=== PATIENT | female | born 1990 | race Caucasian/White ===

== ENCOUNTER → 2016-05-04 | Emergency (ER) | payer OTHER ==
[~2016-05-04] MED LIST: METRONIDAZOLE 500 MG PREMIXED 100 ML IVPB ONE; ONDANSETRON 4 MG/2 ML VIAL ONE; morphine CARPU-JECT 4 MG/1 ML DISP.SYRIN ONE
[2016-05-04 21:05] VITALS: BP 112/51; PULSE 91; TEMP 98.7; BMI 32.2
--- NOTE | 2016-05-04 21:35 | PDOC ---
History of Present Illness - General Chief Complaint: Vomiting/Diarrhea Stated Complaint: VOMITING/DIARRHEA Past History - Past Medical History Allergies/Adverse Reactions: Allergies Allergy/AdvReac Type Severity Reaction Status Date / Time fluoxetine HCl [From Prozac] Allergy Verified 05/04/16 21:01 haloperidol [From Haldol] Allergy Verified 05/04/16 21:01 haloperidol lactate Allergy Verified 05/04/16 21:01 [From Haldol] risperidone [From Risperdal] AdvReac Verified 05/04/16 21:01 Home Medications: Ambulatory Orders Clonazepam 1 mg PO BID 05/04/16 Duloxetine HCl [Cymbalta -] 90 mg PO DAILY 05/04/16 Fluvoxamine Maleate [Luvox -] 0 mg PO DAILY 05/04/16 Quetiapine Fumarate [Seroquel] 600 mg PO HS 05/04/16 GI Disorders: Yes (irritable bowel syndrome) Psychiatric Problems: Yes (MDD, BIPOLAR, ANXIETY) - Psycho/Social/Smoking Cessation Hx Suicidal Ideation: No Smoking Status: Yes Smoking History: Current every day smoker Number of Cigarettes Smoked Daily: 2 Information on smoking cessation initiated: Yes 'Breaking Loose' booklet given: 05/04/16 Hx Alcohol Use: No Drug/Substance Use Hx: No *Physical Exam - Vital Signs Last Vital Signs Temp Pulse Resp BP Pulse Ox 98.7 F 91 H 18 112/51 97 05/04/16 21:03 05/04/16 21:03 05/04/16 21:03 05/04/16 21:03 05/04/16 21:03
== END | disposition left against medical advice (07) ==
LOC: JER 20:57
DX: Z53.21 Procedure and treatment not carried out due to patient leaving prior to being seen by health care provider (principal)
CPT/HCPCS: 99281-25

== ENCOUNTER 2016-06-20 23:25 | Emergency (ER) | payer OTHER ==
[2016-06-20 23:38] VITALS: PULSE 104; TEMP 98; BMI 27.4
[2016-06-21] MEDS ORDERED: TETANUS AND DIPHTHERIA TOXOID 0.5 ML DISP.SYRIN IM ONE (00:03)
[2016-06-21] MEDS ORDERED: LIDOCAINE HCL 1%, 10 MG/ML (50 mL VIAL) IO ONE (00:08)
[2016-06-21] MEDS ORDERED: BACITRACIN 30 GM TUBE TOPICAL OINTMENT TP ONE (00:08)
--- NOTE | 2016-06-21 00:13 | PDOC ---
History of Present Illness - General Chief Complaint: Laceration Stated Complaint: RT HAND LACERATION Time Seen by Provider: 06/20/16 23:53 History Source: Patient Exam Limitations: No Limitations - History of Present Illness Initial Comments: 06/21/16 00:10 25yo Female patient presents to ED c/o right hand laceration sustained while cooking earlier today approx.. 3pm. Patient states she thought it was a superficial wound that why she did not come in earlier. Tetanus: Not up to date. Denies any other complaints at this time. Severity: Yes: mild Location: reports: extremities Respiratory Risk Factors: denies: no cause identified, exposure to illness, exposure to allergen, foods, insect bite, insect sting, medications, pollen, soaps, other Modifying Factors: worse with: antihistamine, calamine lotion, prednisone, scratching, topical steriods, other Associated Symptoms: denies: denies symptoms, blisters, change in skin texture, edema, fever, flushing, headache, hives, jaundice, malaise, nasal congestion, numbness, pallor, paresthesia, petechiae, rash, sore throat, swelling/mass/lumps , tingling, other Past History - Travel Traveled outside of the country in the last 30 days: No Close contact w/someone who was outside of country & ill: No - Past Medical History Allergies/Adverse Reactions: Allergies Allergy/AdvReac Type Severity Reaction Status Date / Time fluoxetine HCl [From Prozac] Allergy Verified 06/20/16 23:36 haloperidol [From Haldol] Allergy Verified 06/20/16 23:36 haloperidol lactate Allergy Verified 06/20/16 23:36 [From Haldol] risperidone [From Risperdal] AdvReac Verified 06/20/16 23:36 Home Medications: Ambulatory Orders Fluvoxamine Maleate [Luvox -] 100 mg PO HS 05/04/16 Clonazepam 1 mg PO BID #60 tab.rapdis MDD 2 05/07/16 Duloxetine HCl [Cymbalta -] 90 mg PO DAILY #90 capsule. 05/07/16 Quetiapine Fumarate [Seroquel] 600 mg PO HS #60 tablet 05/07/16 Cephalexin [Keflex] 500 mg PO DAILY #7 capsule 06/21/16 GI Disorders: Yes (irritable bowel syndrome) Psychiatric Problems: Yes - Immunization History Immunization Up to Date: No - Psycho/Social/Smoking Cessation Hx Suicidal Ideation: No Smoking Status: Yes Smoking History: Current every day smoker Number of Cigarettes Smoked Daily: 2 Information on smoking cessation initiated: No 'Breaking Loose' booklet given: 05/04/16 Hx Alcohol Use: No Drug/Substance Use Hx: No Review of Systems - Review of Systems Able to Perform ROS?: Yes Is the patient limited Turkish proficient: No Constitutional: No: Chills, Fever Integumentary: Yes: Erythema, Other (Laceration) All Other Systems: Reviewed and Negative *Physical Exam - Vital Signs Last Vital Signs Temp Pulse Resp BP Pulse Ox 98 F 104 H 16 134/110 98 06/20/16 23:37 06/20/16 23:37 06/20/16 23:37 06/20/16 23:37 06/20/16 23:37 - Physical Exam General Appearance: Yes: Nourished, Appropriately Dressed. No: Apparent Distress, Mild Distress, Moderate Distress, Severe Distress Respiratory/Chest: positive: Lungs Clear, Normal Breath Sounds. negative: Respiratory Distress, Accessory Muscle Use, Labored Respiration, Rapid RR Cardiovascular: positive: Regular Rhythm, Regular Rate. negative: Edema, JVD, Murmur Musculoskeletal: positive: Normal Inspection. negative: CVA Tenderness Extremity: positive: Normal Capillary Refill, Normal Inspection, Normal Range of Motion. negative: Pedal Edema, Swelling Integumentary: positive: Normal Color, Dry, Warm, Swelling (Mild), Other ( Linear laceration to roberts aspect of right hand.) Procedures - Laceration/Wound Repair Right Hand Wound Length: to 2.5 cm Wound Explored: clean Wound's Depth, Shape: superficial, linear Irrigated w/ Saline: Yes Betadine Prep: Yes Anesthesia: 1% Lidocaine Amount of Anesthetic (ccs): 3 Wound Debrided: minimal Wound Repaired With: Sutures Suture Size/Type: 4:0, nylon Number of Sutures: 3 Layer Closure: No Sterile Dressing Applied: No Splint Applied: No Sling Applied: No Progress: 06/21/16 00:39 Patient tolerated procedure well. ED Treatment Course - Medications Given in the ED: ED Medications Discontinued Medications Generic Name Dose Route Start Last Admin Trade Name Freq PRN Reason Stop Dose Admin Tetanus/Diphtheria Toxoids Adsorbed 0.5 ml 06/21/16 00:03 06/21/16 00:03 Decavac - IM 06/21/16 00:04 0.5 ml NOW ONE Administration *DC/Admit/Observation/Transfer Diagnosis at time of Disposition: Laceration - Discharge Dispostion Disposition: HOME Condition at time of disposition: Stable Admit: No - Prescriptions Prescriptions: Cephalexin [Keflex] 500 mg PO DAILY #7 capsule - Patient Instructions Printed Discharge Instructions: DI for Laceration Repair, DI for Suture Removal Additional Instructions: RETURN IN 2 WEEKS FOR SUTURE REMOVAL. CLEAN AREA DAILY AND APPLY TRIPLE ANTIBIOTIC OR NEOSPORIN. RETURN IF SYMPTOMS WORSEN ON AND CONCERNS FOR FURTHER EVALUATION. Print Language: MOHAWK
[2016-06-21] MEDS ORDERED: CEPHALEXIN MONOHYDRATE 250 MG CAPSULE (FP) ONE (00:39)
[2016-06-21] MEDS ORDERED: CEPHALEXIN MONOHYDRATE 500 MG CAPSULE (UD) PO ONE (00:43)
[2016-06-21 00:48] VITALS: BP 128/80
== END 2016-06-21 00:48 | disposition home or self-care (01) ==
LOC: JER 23:25
PROC: 3E0234Z Introduction of Serum, Toxoid and Vaccine into Muscle, Percutaneous Approach (ICD-10-PCS; principal; 2016-06-20)
PROC: 0HQFXZZ Repair Right Hand Skin, External Approach (ICD-10-PCS; 2016-06-20)
DX: S61.411A Laceration without foreign body of right hand, initial encounter (principal); W26.0XXA Contact with knife, initial encounter; Y93.G3 Activity, cooking and baking; Y92.030 Kitchen in apartment as the place of occurrence of the external cause; Y99.8 Other external cause status
CPT/HCPCS: 12001-25; 90471; 90715; 99282-25

== ENCOUNTER 2016-10-06 10:31 | Emergency (ER) | payer OTHER ==
--- NOTE | 2016-10-06 10:53 | PDOC ---
History of Present Illness - General History Source: Patient, Old Records Exam Limitations: No Limitations - History of Present Illness Initial Comments: 10/06/16 12:26 The patient is a 26-year-old woman with a significant past medical history of major depressive disorder, bipolar disorder, anxiety, irritable bowel syndrome and hemorrhoids who presents to the emergency department for vaginal bleeding. Patient states that she believes she is . She reports taking two home test for which both were negative. Patient has similar complaints in April for which she was seen in this facility and a negative was confirmed and she started an oral contraceptive regime. Allergies: Fluoxetine HCL. Haloperidol. Haloperidol Lactate. Risperidone Past Surgical History: None reported. Social History: Current everyday cigarette smoker (approximately 2 cigarettes/ day). No EtOH and recreational drug use. Primary Care Physician: Dr. Jen Pratt <Tika Hernandez - Last Filed: 10/06/16 12:48> <Mary Alston - Last Filed: 10/06/16 13:34> - General Chief Complaint: Psychiatric Stated Complaint: Vaginal Bleeding Time Seen by Provider: 10/06/16 10:41 Past History <Tika Hernandez - Last Filed: 10/06/16 12:48> - Past Medical History GI Disorders: Yes (irritable bowel syndrome) Psychiatric Problems: Yes - Immunization History Immunization Up to Date: No - Psycho/Social/Smoking Cessation Hx Suicidal Ideation: No Smoking Status: Yes Smoking History: Current every day smoker Number of Cigarettes Smoked Daily: 2 'Breaking Loose' booklet given: 05/04/16 Hx Alcohol Use: No Drug/Substance Use Hx: No <Mary Alston - Last Filed: 10/06/16 13:34> - Past Medical History Allergies/Adverse Reactions: Allergies Allergy/AdvReac Type Severity Reaction Status Date / Time fluoxetine HCl [From Prozac] Allergy Verified 06/20/16 23:36 haloperidol [From Haldol] Allergy Verified 06/20/16 23:36 haloperidol lactate Allergy Verified 06/20/16 23:36 [From Haldol] risperidone [From Risperdal] AdvReac Verified 06/20/16 23:36 Home Medications: Ambulatory Orders Fluvoxamine Maleate [Luvox -] 100 mg PO HS 05/04/16 Clonazepam 1 mg PO BID #60 tab.rapdis MDD 2 05/07/16 Duloxetine HCl [Cymbalta -] 90 mg PO DAILY #90 capsule. 05/07/16 Quetiapine Fumarate [Seroquel] 600 mg PO HS #60 tablet 05/07/16 Cephalexin [Keflex] 500 mg PO DAILY #7 capsule 06/21/16 Review of Systems - Review of Systems Able to Perform ROS?: Yes Comments:: GENERAL/CONSTITUTIONAL: No fever or chills. No weakness. HEAD, EYES, EARS, NOSE AND THROAT: No change in vision. No ear pain or discharge. No sore throat. CARDIOVASCULAR: No chest pain or shortness of breath. RESPIRATORY: No cough, wheezing, or hemoptysis. GASTROINTESTINAL: +Nausea, vomiting. No diarrhea or constipation. GENITOURINARY: No dysuria, frequency, or change in urination. MUSCULOSKELETAL: No joint or muscle swelling or pain. No neck or back pain. SKIN: No rash NEUROLOGIC: No headache, vertigo, loss of consciousness, or change in strength/ sensation. ENDOCRINE: No increased thirst. No abnormal weight change. HEMATOLOGIC/LYMPHATIC: No anemia, easy bleeding, or history of blood clots. ALLERGIC/IMMUNOLOGIC: No hives or skin allergy. <Mary Alston - Last Filed: 10/06/16 13:34> *Physical Exam - Vital Signs Last Vital Signs Temp Pulse Resp BP Pulse Ox 98.1 F 74 20 108/73 100 10/06/16 10:52 10/06/16 10:52 10/06/16 10:52 10/06/16 10:52 10/06/16 10:52 <Tika Hernandez - Last Filed: 10/06/16 12:48> - Physical Exam Comments: GENERAL: Awake, alert, and fully oriented, in no acute distress HEAD: No signs of trauma EYES: PERRLA, EOMI, sclera anicteric, conjunctiva clear ENT: Auricles normal inspection, hearing grossly normal, nares patent, oropharynx clear without exudates. Moist mucosa NECK: Normal ROM, supple, no lymphadenopathy, JVD, or masses LUNGS: Breath sounds equal, clear to auscultation bilaterally. No wheezes, and no crackles HEART: Regular rate and rhythm, normal S1 and S2, no murmurs, rubs or gallops ABDOMEN: Soft, nontender, normoactive bowel sounds. No guarding, no rebound. No masses EXTREMITIES: Normal range of motion, no edema. No clubbing or cyanosis. No cords, erythema, or tenderness NEUROLOGICAL: Cranial nerves II through XII grossly intact. Normal speech, normal gait SKIN: Warm, Dry, normal turgor, no rashes or lesions noted. PSYCHIATRIC: Mildly agitated, refusing to answer some questions. <Mary Alston - Last Filed: 10/06/16 13:34> ED Treatment Course - LABORATORY CBC & Chemistry Diagram: 10/06/16 12:00 10/06/16 12:00 - ADDITIONAL ORDERS Additional order review: Laboratory Results 10/06/16 10/06/16 12:00 12:00 Urine Color Ltyellow Urine Appearance Clear Urine pH 6.0 Urine Protein Negative Urine Glucose (UA) Negative Urine Ketones Negative Urine Blood 3+ H Urine Nitrite Negative Urine Bilirubin Negative Urine Urobilinogen Negative Ur Leukocyte Esterase Negative Opiates Screen Negative Methadone Screen Negative Barbiturate Screen Negative Ur Amphetamines Screen Negative MDMA (Ecstasy) Screen Negative Benzodiazepines Screen Negative Cocaine Screen Negative - Medications Given in the ED: ED Medications Discontinued Medications Generic Name Dose Route Start Last Admin Trade Name Freq PRN Reason Stop Dose Admin Sodium Chloride 1,000 mls @ 1,000 mls/hr 10/06/16 10:54 10/06/16 11:47 Normal Saline - IV 10/06/16 11:53 1,000 mls/hr ASDIR STA Administration <Tika Hernandez - Last Filed: 10/06/16 12:48> - LABORATORY CBC & Chemistry Diagram: 10/06/16 12:00 10/06/16 12:00 <Mary Alston - Last Filed: 10/06/16 13:34> Medical Decision Making - Medical Decision Making Pt with complaints of vaginal bleeding intermittently since March, for which she has followed up as an outpatient. She initially insisted she was , stating she was lactating. However, she has been following up with preboarder as an outpatient, was placed on OCPs back in March for ?DUB. Serum B-HCG was sent, negative. She c/o N/V, initially refusing any history with a hostile affect, stating "read the chart, it's the same thing". I started IV fluids and sent labs , HCG was negative, and at that point, patient stated she felt better, requesting discharge home. Given the prior notes in chart as well as known marijuana use, suspect cyclic vomiting. <Mary Alston - Last Filed: 10/06/16 13:34> *DC/Admit/Observation/Transfer - Attestations Scribe Attestion: 10/06/16 12:37 Documentation prepared by Tika Hernandez, acting as medical cash poster for Mary Alston MD. <Tika Hernandez - Last Filed: 10/06/16 12:48> - Discharge Dispostion Admit: No <Mary Alston - Last Filed: 10/06/16 13:34> Diagnosis at time of Disposition: Nausea and vomiting Qualifiers: Vomiting type: unspecified Vomiting Intractability: non-intractable Qualified Code(s): R11.2 - Nausea with vomiting, unspecified - Discharge Dispostion Disposition: HOME Condition at time of disposition: Stable - Referrals Referrals: eJn Handley MD [Primary Care Provider] - - Patient Instructions Printed Discharge Instructions: DI for Vomiting -- Adult
[2016-10-06] MEDS ORDERED: SODIUM CHLORIDE 1,000 ML IV STA (10:54)
[2016-10-06 11:00] VITALS: BP 108/73; PULSE 74; TEMP 98.1
[2016-10-06 12:19] LABS: URINE APPEARANCE CLEAR; URINE BILIRUBIN NEGATIVE (NEGATIVE); URINE COLOR LTYELLOW; URINE GLUCOSE (UA) NEGATIVE (NEGATIVE); URINE KETONE NEGATIVE (NEGATIVE); URINE LEUK ESTERASE NEGATIVE (NEGATIVE); URINE NITRITE NEGATIVE (NEGATIVE); URINE PROTEIN NEGATIVE (NEGATIVE); URINE UROBILINOGEN NEGATIVE E.U./dl (0.2-1.0)
[2016-10-06 12:20] LABS: BASOPHIL 0.8 % (0-2.0); EOSINOPHIL 2.2 % (0-4.5); MCH 31.1 pg (25.7-33.7); MCHC 33.6 g/dl (32.0-36.0); MEAN CELL VOLUME 92.6 fl (80-96); MEAN PLT VOLUME 8.8 fl (7.5-11.1); NEUTROPHILS 75.2 % (42.8-82.8); PLATELET COUNT 275 K/MM3 (134-434); RDW 14.5 % (11.6-15.6); WHITE BLOOD COUNT 16.6 K/mm3 (4.0-10.0)
[2016-10-06 12:23] LABS: URINE BLOOD 3+ (NEGATIVE)
[2016-10-06 12:25] LABS: URINE RBC 363 /hpf (0-3)
[2016-10-06 12:37] LABS: URINE MARIJUANA THC POSITIVE ng/ml (CUTOFF=50)
[2016-10-06 12:40] LABS: ALBUMIN 3.5 g/dl (3.4-5.0); ANION GAP 5 (8-16); BILIRUBIN,TOTAL 0.2 mg/dL (0.2-1.0); CALCIUM 9.1 mg/dL (8.5-10.1); CO2 28 mmol/L (21-32); CREATININE 0.6 mg/dL (0.55-1.02); GLUCOSE,RANDOM 87 mg/dL (74-106); SGOT/AST 12 U/L (15-37); SGPT/ALT 14 U/L (12-78); TOT PROT 7.2 g/dl (6.4-8.2)
[2016-10-06 12:42] LABS: ALK PHOS 66 U/L (45-117)
== END 2016-10-06 13:05 | disposition home or self-care (01) ==
LOC: JER 10:31
PROC: 3E0337Z Introduction of Electrolytic and Water Balance Substance into Peripheral Vein, Percutaneous Approach (ICD-10-PCS; principal; 2016-10-06)
DX: R11.2 Nausea with vomiting, unspecified (principal); F32.9 Major depressive disorder, single episode, unspecified; F31.89 Other bipolar disorder
CPT/HCPCS: 36415; 80053; 80307; 81003; 81015; 84702; 85025; 96360; 99283-25

== ENCOUNTER 2016-11-26 10:24 | Emergency (ER) | payer OTHER ==
[2016-11-26 10:33] VITALS: BP 128/75; PULSE 84; TEMP 98.5; BMI 27.4
[2016-11-26 12:32] LABS: BASOPHIL 0.5 % (0-2.0); EOSINOPHIL 0.1 % (0-4.5); MCH 31.1 pg (25.7-33.7); MCHC 33.1 g/dl (32.0-36.0); MEAN CELL VOLUME 93.8 fl (80-96); MEAN PLT VOLUME 9.8 fl (7.5-11.1); NEUTROPHILS 84.7 % (42.8-82.8); PLATELET COUNT 211 K/MM3 (134-434); RDW 14.1 % (11.6-15.6); WHITE BLOOD COUNT 14.4 K/mm3 (4.0-10.0)
[2016-11-26 12:43] LABS: URINE APPEARANCE SLCLOUDY; URINE BILIRUBIN NEGATIVE (NEGATIVE); URINE BLOOD NEGATIVE (NEGATIVE); URINE COLOR AMBER; URINE GLUCOSE (UA) NEGATIVE (NEGATIVE); URINE KETONE 2+ (NEGATIVE); URINE LEUK ESTERASE TRACE (NEGATIVE); URINE NITRITE NEGATIVE (NEGATIVE); URINE UROBILINOGEN NEGATIVE mg/dL (0.2-1.0)
[2016-11-26 12:44] LABS: URINE PROTEIN 1+ (NEGATIVE)
[2016-11-26 12:46] LABS: URINE BACTERIA RARE /hpf (NONE SEEN); URINE MUCUS MANY; URINE RBC 5 /hpf (0-3); URINE WBC 4 /hpf (3-5)
[2016-11-26] MEDS ORDERED: ONDANSETRON 4 MG/2 ML VIAL IVPB ONE (12:49)
[2016-11-26] MEDS ORDERED: MAG HYDROX/AL HYDROX/SIMETH 355 ML ORAL.SUSP PO ONE (12:49)
[2016-11-26] MEDS ORDERED: FAMOTIDINE 20 MG/50 ML IVPB 20 MG in PREMIX 50 IVPB ONE (12:49)
[2016-11-26] MEDS ORDERED: ONDANSETRON 4 MG/2 ML VIAL ONE (12:52)
[2016-11-26] MEDS ORDERED: MAG HYDROX/AL HYDROX/SIMETH 30 ML UNIT-DOSE CUP ONE (12:52)
[2016-11-26] MEDS ORDERED: FAMOTIDINE 20 MG/50 ML IVPB 50 ML IVPB ONE (12:53)
--- NOTE | 2016-11-26 12:54 | PDOC ---
History of Present Illness - General History Source: Patient Exam Limitations: No Limitations - History of Present Illness Initial Comments: 11/26/16 15:49 The patient is a 26 year old female, with a significant past medical history of major depressive disorder, bipolar disorder, anxiety, IBS and hemorrhoids who presents to the emergency department with lower abdominal pain, nausea, and vomiting for about 2 weeks. The patient reports being unable to tolerate any solids/liquids since the onset of her symptoms. She reports having intermittent abdominal pain every morning. She often notes having multiple episodes of vomiting every morning. She reports vomiting clear/. orange/yellow liquid with black spots. The patient reports having ongoing problems with an ovarian cyst since Apr 2016. She reports since having been diagnosed with an ovarian cysts having intermittent episodes of vaginal bleeding. She denies recent fevers, chills, headache or dizziness. She denies any recent travel or sick contacts. She denies recent dysuria, frequency, urgency or hematuria. She denies recent chest pain or shortness of breath. Pt states her periods are irregular. Allergies: See Nursing Notes Past surgical history: None reported. Social history: Current Everyday cigarette smoker. Denies EtOH use and recreational drug use. Primary Care Physician: Dr.Sharon Pozo <Km Hahn - Last Filed: 11/26/16 15:49> <Rigoberto Wang - Last Filed: 11/26/16 17:35> - General Chief Complaint: Pain Stated Complaint: PAIN Time Seen by Provider: 11/26/16 11:16 Past History <Km Hahn - Last Filed: 11/26/16 15:49> - Past Medical History GI Disorders: Yes (irritable bowel syndrome) Psychiatric Problems: Yes (OCD, DEPRESSION, BIPOLAR) - Immunization History Immunization Up to Date: No - Psycho/Social/Smoking Cessation Hx Anxiety: No Suicidal Ideation: No Smoking Status: Yes Smoking History: Current every day smoker Number of Cigarettes Smoked Daily: 1 Information on smoking cessation initiated: No 'Breaking Loose' booklet given: 05/04/16 Hx Alcohol Use: Yes (SOCIAL) Drug/Substance Use Hx: No Substance Use Type: None <Rigoberto Wang - Last Filed: 11/26/16 17:35> - Past Medical History Allergies/Adverse Reactions: Allergies Allergy/AdvReac Type Severity Reaction Status Date / Time fluoxetine HCl [From Prozac] Allergy Verified 11/26/16 10:33 haloperidol [From Haldol] Allergy Verified 11/26/16 10:33 haloperidol lactate Allergy Verified 11/26/16 10:33 [From Haldol] risperidone [From Risperdal] AdvReac Verified 11/26/16 10:33 Home Medications: Ambulatory Orders Ondansetron [Zofran Odt -] 4 mg SL BID PRN #14 od.tablet 11/26/16 Review of Systems - Review of Systems Able to Perform ROS?: Yes Comments:: 11/26/16 15:50 CONSTITUTIONAL: No reported: Fever, Chills, Diaphoresis, Generalized Weakness, Malaise, Loss of Appetite HEENT: No reported: Rhinorrhea, Nasal Congestion, Throat Pain, Throat Swelling, Difficulty Swallowing, Mouth Swelling, Ear Pain, Eye Pain, Visual Changes CARDIOVASCULAR: No reported: Chest Pain, Syncope, Palpitations, Irregular Heart Rate, Lightheadedness, Peripheral Edema RESPIRATORY: No reported: Cough, Shortness of Breath, SOB with Exertion, Orthopnea, Wheezing , Stridor, Hemoptysis GASTROINTESTINAL: +Abdominal pain, Nausea, Vomiting,No reported: Diarrhea, Constipation, Melena, Hematochezia GENITOURINARY: No reported: Dysuria, Frequency, Urgency, Hesitancy, Flank Pain, Genital Pain MUSCULOSKELETAL: No reported: Myalgia, Arthralgia, Joint Swelling, Back pain, Neck Pain SKIN: No reported: Rash, Itching, Pallor HEMATOLOGIC/IMMUNOLOGIC: No reported: Easy Bleeding, Easy Bruising, Lymphadenopathy, Frequent infections ENDOCRINE: No reported: Unexplained Weight Gain, Unexplained Weight Loss, Heat Intolerance , Cold Intolerance NEUROLOGIC: No reported: Headache, Focal Weakness, Paresthesias, Vertigo, Lightheadedness, Unsteady Gait, Seizure, Mental Status Changes, Incontinence PSYCHIATRIC: No reported: Anxiety, Depression <Km Hahn - Last Filed: 11/26/16 15:49> *Physical Exam - Vital Signs Last Vital Signs Temp Pulse Resp BP Pulse Ox 98.5 F 84 20 128/75 100 11/26/16 10:28 11/26/16 10:28 11/26/16 10:28 11/26/16 10:28 11/26/16 10:28 - Physical Exam Comments: 11/26/16 15:50 GENERAL: The patient is awake, alert, and fully oriented, Nontoxic - in no acute distress. HEAD: Normocephalic, atraumatic. EYES: extraocular movements intact, sclera anicteric, conjunctiva clear. ENT: Normal voice, Moist mucous membranes. NECK: Normal range of motion, supple LUNGS: Breath sounds equal, clear to auscultation bilaterally. No wheezes, no rhonchi, no rales. HEART: Regular rate and rhythm, without murmur, rub or gallop. ABDOMEN: Soft, mild left lower quadrant tenderness, normoactive bowel sounds. No guarding, no rebound.No CVA tenderness EXTREMITIES: Normal range of motion, no edema. No clubbing or cyanosis. No cords , erythema, or tenderness. NEUROLOGICAL: No facial asymmetry, Normal speech. PSYCH: Normal mood, normal affect. SKIN: Warm, Dry, normal turgor. <Km Hahn - Last Filed: 11/26/16 15:49> - Vital Signs Last Vital Signs Temp Pulse Resp BP Pulse Ox 98.5 F 84 20 128/75 100 11/26/16 10:28 11/26/16 10:28 11/26/16 10:28 11/26/16 10:28 11/26/16 10:28 <Rigoberto Wang - Last Filed: 11/26/16 17:35> ED Treatment Course - LABORATORY CBC & Chemistry Diagram: 11/26/16 12:09 11/26/16 12:09 - ADDITIONAL ORDERS Additional order review: Laboratory Results 11/26/16 11/26/16 11/26/16 13:00 13:00 12:09 Sodium 137 Potassium 4.7 Chloride 102 Carbon Dioxide 25 Anion Gap 10 BUN 9 Creatinine 0.7 Creat Clearance w eGFR > 60 Random Glucose 92 Calcium 9.6 Total Bilirubin 0.3 D AST 7 L D ALT 15 Alkaline Phosphatase 71 Total Protein 7.6 Albumin 4.0 Lipase 91 Beta HCG, Quant 24042.0 Urine Color Urine Appearance Urine pH Urine Protein Urine Glucose (UA) Urine Ketones Urine Blood Urine Nitrite Urine Bilirubin Urine Urobilinogen Ur Leukocyte Esterase Urine RBC Urine WBC Ur Epithelial Cells Urine Bacteria Urine Mucus Urine HCG, Qual 11/26/16 12:09 Sodium Potassium Chloride Carbon Dioxide Anion Gap BUN Creatinine Creat Clearance w eGFR Random Glucose Calcium Total Bilirubin AST ALT Alkaline Phosphatase Total Protein Albumin Lipase Beta HCG, Quant Urine Color Maren Urine Appearance Slcloudy Urine pH 6.0 Urine Protein 1+ H Urine Glucose (UA) Negative Urine Ketones 2+ H Urine Blood Negative Urine Nitrite Negative Urine Bilirubin Negative Urine Urobilinogen Negative Ur Leukocyte Esterase Trace Urine RBC 5 Urine WBC 4 Ur Epithelial Cells Few Urine Bacteria Rare Urine Mucus Many Urine HCG, Qual Positive 11/26/16 12:09 RBC 4.39 MCV 93.8 MCHC 33.1 RDW 14.1 MPV 9.8 D Neutrophils % 84.7 H Lymphocytes % 10.2 D Monocytes % 4.5 Eosinophils % 0.1 D Basophils % 0.5 - Medications Given in the ED: ED Medications Discontinued Medications Generic Name Dose Route Start Last Admin Trade Name Freq PRN Reason Stop Dose Admin Al Hydroxide/Mg Hydroxide 30 ml 11/26/16 12:49 11/26/16 12:58 Mylanta Suspension - PO 11/26/16 12:50 30 ml ONCE ONE Administration Famotidine/Sodium Chloride 20 50 mls @ 100 mls/hr 11/26/16 12:49 11/26/16 12:59 mg/ Miscellaneous IVPB 11/26/16 13:18 100 mls/hr ONCE ONE Administration Ondansetron HCl 4 mg 11/26/16 12:49 11/26/16 12:59 Zofran Injection IVPB 11/26/16 12:50 4 mg ONCE ONE Administration <Km Hahn - Last Filed: 11/26/16 15:49> - LABORATORY CBC & Chemistry Diagram: 11/26/16 12:09 11/26/16 12:09 - ADDITIONAL ORDERS Additional order review: Laboratory Results 11/26/16 12:09 Urine Color Maren Urine Appearance Slcloudy Urine pH 6.0 Urine Protein 1+ H Urine Glucose (UA) Negative Urine Ketones 2+ H Urine Blood Negative Urine Nitrite Negative Urine Bilirubin Negative Urine Urobilinogen Negative Ur Leukocyte Esterase Trace Urine RBC 5 Urine WBC 4 Ur Epithelial Cells Few Urine Bacteria Rare Urine Mucus Many Urine HCG, Qual Positive 11/26/16 12:09 RBC 4.39 MCV 93.8 MCHC 33.1 RDW 14.1 MPV 9.8 D Neutrophils % 84.7 H Lymphocytes % 10.2 D Monocytes % 4.5 Eosinophils % 0.1 D Basophils % 0.5 <Rigoberto Wang - Last Filed: 11/26/16 17:35> Medical Decision Making - Medical Decision Making 11/26/16 12:50 26y F hx of ovarian cysts, IBD presents with LLQ pain, and vomiting, similar in nature to previous episodes of pain. 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 I answered all of the patient's questions. The patient was satisfied with the care received and felt comfortable with the discharge plan and treatment plan. The patient will call their primary care physician within 24 hours to arrange follow-up and will return to the Emergency Department with any new, persistent or worsening symptoms. <Rigoberto Wang - Last Filed: 11/26/16 17:35> *DC/Admit/Observation/Transfer - Attestations Scribe Attestion: 11/26/16 15:50 Documentation prepared by Km Hahn, acting as medical affairs leader for Rigoberto Wang MD. <Km Hahn - Last Filed: 11/26/16 15:49> - Discharge Dispostion Admit: No <Rigoberto Wang - Last Filed: 11/26/16 17:35> Diagnosis at time of Disposition: Vomiting affecting , Abdominal pain affecting - Discharge Dispostion Disposition: HOME Condition at time of disposition: Improved - Prescriptions Prescriptions: Ondansetron [Zofran Odt -] 4 mg SL BID PRN #14 od.tablet PRN Reason: Nausea - Referrals Referrals: Jen Handley MD [Primary Care Provider] - Perla Severino MD [Staff Physician] - - Patient Instructions Printed Discharge Instructions: DI for Hyperemesis Gravidarum Additional Instructions: You are . If you are extremely nauseus you can take a zofran. Return to the emergency department immediately with ANY new, persistent or worsening symptoms including worsening abdominal pain, fevers, inability to tolerate oral intake, or any other concerns. Stay well hydrated. You MUST call and follow up with your doctor and obgyn within 3-4 days. Your emergency department visit is not complete without a followup with your doctor for reevaluation. Please make sure your doctor reviews the results of your emergency evaluation. Print Language: [id number]
[2016-11-26 13:30] LABS: ALK PHOS 71 U/L (45-117); ANION GAP 10 (8-16); BILIRUBIN,TOTAL 0.3 mg/dL (0.2-1.0); CALCIUM 9.6 mg/dL (8.5-10.1); CO2 25 mmol/L (21-32); CREATININE 0.7 mg/dL (0.55-1.02); GLUCOSE,RANDOM 92 mg/dL (74-106); SGOT/AST 7 U/L (15-37); SGPT/ALT 15 U/L (12-78); TOT PROT 7.6 g/dl (6.4-8.2)
[2016-11-26] MEDS ORDERED: morphine CARPU-JECT 2 MG/1 ML DISP.SYRIN IVPUSH ONE (16:30)
[2016-11-26] MEDS ORDERED: morphine CARPU-JECT 2 MG/1 ML DISP.SYRIN ONE (16:32)
== END 2016-11-26 17:50 | disposition home or self-care (01) ==
LOC: JER 10:24
PROC: 3E033GC Introduction of Other Therapeutic Substance into Peripheral Vein, Percutaneous Approach (ICD-10-PCS; principal; 2016-11-26)
PROC: 3E033GC Introduction of Other Therapeutic Substance into Peripheral Vein, Percutaneous Approach (ICD-10-PCS; 2016-11-26)
DX: O26.891 Other specified pregnancy related conditions, first trimester (principal); O21.0 Mild hyperemesis gravidarum; Z3A.01 Less than 8 weeks gestation of pregnancy; Z86.59 Personal history of other mental and behavioral disorders; F17.210 Nicotine dependence, cigarettes, uncomplicated
CPT/HCPCS: 36415; 76801-TC; 76817-TC; 80053; 81003; 81015; 83690; 84702; 84703; 85025; 99282-25

== ENCOUNTER 2020-12-06 18:31 | Emergency (ER) | payer OTHER ==
[2020-12-06 18:51] VITALS: BP 124/83; PULSE 100; TEMP 98.5; BMI 30.2
== END 2020-12-06 19:59 | disposition left against medical advice (07) ==
LOC: JERFT 18:31 → JER 18:31 → JERFT 19:59
DX: R25.1 Tremor, unspecified (principal)
CPT/HCPCS: 99282-25